=== PATIENT | female | born 1965 | race Two or more races ===

== ENCOUNTER 2024-10-28 05:34 | Day surgery (SDC) | payer OTHER ==
[2024-10-28] MEDS ORDERED: fentaNYL CITRATE 50 MCG/ML AMPUL IV PUSH ONE (15:00)
[2024-10-28] MEDS ORDERED: MIDAZOLAM HCL 2 MG/2 ML VIAL IV ONE (15:00)
[2024-10-28] MEDS ORDERED: DIPHENHYDRAMINE HCL 50 MG/ML VIAL 1ML IV ONE ×2 (15:00)
== END 2024-10-28 16:15 | disposition home or self-care (01) ==
LOC: AMB-ENDOS 05:34
PROVIDERS: ATTEND Internal Medicine
DX: K63.5 Polyp of colon (principal); K57.30 Diverticulosis of large intestine without perforation or abscess without bleeding; K64.8 Other hemorrhoids; K64.4 Residual hemorrhoidal skin tags